=== PATIENT | female | born 1995 | race Asian ===

== ENCOUNTER 2016-11-21 15:09 | Inpatient (IN) | payer SELFPAY ==
[~2016-11-21] VITALS: Ht 160 cm; Wt 64.7 kg
[2016-11-21] MEDS ORDERED: HALOPERIDOL LACTATE 5 MG/ML VIAL IM ONE (17:00)
[2016-11-21] MEDS ORDERED: LORazepam 2 MG/ML VIAL IM ONE (17:00)
[2016-11-21] MEDS ORDERED: DiphenhydrAMINE HCL 50 MG/ML VIAL IM ONE (17:00)
[2016-11-21 17:34] LABS: BASOPHILS % (AUTO) 1.7 % (0.0-2.0); EOSINOPHILS % (AUTO) 1.3 % (1.0-6.0); HEMATOCRIT 39.7 % (36-46); LYMPHOCYTES % (AUTO) 16.6 % (22.0-44.0); MEAN CORPUSCULAR HEMOGLOBIN 28.2 pg (26.0-34.0); MEAN CORPUSCULAR HGB CONC 32.8 G/dL (31.0-37.0); MEAN CORPUSCULAR VOLUME 86 fL (80-100); MONOCYTES # (AUTO) 0.6 K/uL (0.1-1.0); MONOCYTES % (AUTO) 4.9 % (2.0-9.0); NEUTROPHILS # (AUTO) 9.1 K/uL (1.8-7.7); NEUTROPHILS % (AUTO) 75.5 % (40.0-70.0); PLATELET COUNT (AUTO) 318 K/uL (150-450); RED BLOOD CELL COUNT(AUTO) 4.61 MIL/uL (4.00-5.20); RED CELL DISTRIBUTION WIDTH 14.7 % (11.5-14.5)
[2016-11-21 17:47] LABS: ANION GAP 8 mmol/L (8-16); CALCIUM, TOTAL 9.3 mg/dL (8.8-10.5); CARBON DIOXIDE 26 mmol/L (22-29); CHLORIDE 102 mmol/L (98-107); CREATININE 0.83 mg/dL (0.60-1.30); GLOMERULAR FILTR. RATE CALC > 60 mL/min (>60); POTASSIUM 3.6 mmol/L (3.5-5.1); SODIUM SERUM 136 mmol/L (136-145); UREA NITROGEN, BLOOD 7 mg/dL (7-18)
[2016-11-21 17:53] LABS: ALANINE AMINOTRANSFERASE 17 U/L (12-78); ALBUMIN 4.2 g/dL (3.4-5.0); ASPARTATE AMINOTRANSFERASE 18 U/L (15-37); BILIRUBIN,TOTAL 0.4 mg/dL (0.1-1.0); TOTAL PROTEIN, SERUM 8.3 g/dL (6.4-8.2)
[2016-11-21] MEDS ORDERED: ZOLPIDEM TARTRATE 10 MG TABLET PO PRN (20:30)
[2016-11-21] MEDS ORDERED: HALOPERIDOL 5 MG TABLET PO PRN (20:30)
[2016-11-21] MEDS ORDERED: IBUPROFEN 400 MG TABLET PO PRN (22:15)
[2016-11-21] MEDS ORDERED: ACETAMINOPHEN 325 MG TABLET PO PRN (22:15)
[2016-11-21 23:40] VITALS: BP 113/69
[2016-11-22] MEDS: RisperiDONE 3 MG TABLET PO SCH ×3 (00:01→16:25)
[2016-11-22] MEDS: LITHIUM CARBONATE 600 MG CAPSULE PO SCH ×2 (00:01→20:06)
[2016-11-22 00:10] VITALS: BP 113/69
[2016-11-22] MEDS ORDERED: INFLUENZA VIRUS VACCINE QVS 2016-17 (3YR+)/PF 60 MCG/0.5 ML SYRINGE IM ONE (01:00)
[2016-11-22 08:07] LABS: BASOPHILS % (AUTO) 1.1 % (0.0-2.0); EOSINOPHILS % (AUTO) 5.6 % (1.0-6.0); HEMATOCRIT 35.5 % (36-46); HEMOGLOBIN 11.6 g/dL (12.0-16.0); LYMPHOCYTES # (AUTO) 2.7 K/uL (1.0-4.8); LYMPHOCYTES % (AUTO) 33.1 % (22.0-44.0); MEAN CORPUSCULAR HEMOGLOBIN 28.2 pg (26.0-34.0); MEAN CORPUSCULAR HGB CONC 32.7 G/dL (31.0-37.0); MEAN CORPUSCULAR VOLUME 86 fL (80-100); MONOCYTES # (AUTO) 0.5 K/uL (0.1-1.0); MONOCYTES % (AUTO) 6.2 % (2.0-9.0); NEUTROPHILS # (AUTO) 4.4 K/uL (1.8-7.7); PLATELET COUNT (AUTO) 264 K/uL (150-450); RED BLOOD CELL COUNT(AUTO) 4.11 MIL/uL (4.00-5.20); RED CELL DISTRIBUTION WIDTH 14.2 % (11.5-14.5); WHITE BLOOD COUNT (AUTO) 8.1 K/uL (4.5-11.0)
[2016-11-22 08:48] LABS: HEMOGLOBIN A1C 4.9 % (4.5-6.2)
[2016-11-22] MEDS: LITHIUM CARBONATE 300 MG CAPSULE PO SCH (09:14)
[2016-11-22 09:28] LABS: ALANINE AMINOTRANSFERASE 17 U/L (12-78); ALBUMIN 3.3 g/dL (3.4-5.0); ANION GAP 6 mmol/L (8-16); ASPARTATE AMINOTRANSFERASE 15 U/L (15-37); BILIRUBIN,TOTAL 0.4 mg/dL (0.1-1.0); CALCIUM, TOTAL 8.4 mg/dL (8.8-10.5); CARBON DIOXIDE 26 mmol/L (22-29); CHLORIDE 105 mmol/L (98-107); CHOL/HDL RATIO 2.1 (3.9-5.7); CREATININE 0.77 mg/dL (0.60-1.30); GLOMERULAR FILTR. RATE CALC > 60 mL/min (>60); POTASSIUM 3.7 mmol/L (3.5-5.1); SODIUM SERUM 137 mmol/L (136-145); THYROID STIMULATING HORMONE 0.78 uIU/mL (0.36-3.74); TOTAL PROTEIN, SERUM 6.8 g/dL (6.4-8.2); UREA NITROGEN, BLOOD 12 mg/dL (7-18)
[2016-11-22] MEDS: NICOTINE 21 MG/24 HOUR PATCH TD SCH (14:22)
[2016-11-22 16:02] VITALS: BP 109/58
[2016-11-22] MEDS: LORazepam 2 MG TABLET PO PRN (17:50)
[2016-11-23 01:40] VITALS: BP 135/77
[2016-11-23] MEDS: LORazepam 2 MG TABLET PO PRN ×2 (01:44→08:36)
[2016-11-23 08:10] VITALS: BP 111/71
[2016-11-23] MEDS: NICOTINE 21 MG/24 HOUR PATCH TD SCH (08:32)
[2016-11-23] MEDS: LITHIUM CARBONATE 300 MG CAPSULE PO SCH (08:32)
[2016-11-23] MEDS: RisperiDONE 3 MG TABLET PO SCH ×2 (08:36→17:00)
[2016-11-23] MEDS ORDERED: ONDANSETRON HCL 4 MG TABLET PO PRN (13:30)
[2016-11-23 16:10] VITALS: BP 106/62
[2016-11-23] MEDS: LITHIUM CARBONATE 600 MG CAPSULE PO SCH (20:17)
[2016-11-24 06:59] VITALS: BP 109/69
[2016-11-24 08:06] VITALS: BP 114/77
[2016-11-24] MEDS: RisperiDONE 3 MG TABLET PO SCH (09:00)
[2016-11-24] MEDS: LORazepam 2 MG TABLET PO PRN (09:10)
[2016-11-24] MEDS: LITHIUM CARBONATE 300 MG CAPSULE PO SCH (09:10)
[2016-11-24] MEDS: NICOTINE 21 MG/24 HOUR PATCH TD SCH (09:11)
[2016-11-24 16:53] VITALS: BP 100/60
[2016-11-24] MEDS: LITHIUM CARBONATE 600 MG CAPSULE PO SCH (20:51)
[2016-11-24] MEDS: ARIPiprazole 15 MG TABLET PO SCH (21:00)
[2016-11-25 08:07] VITALS: BP 113/75
[2016-11-25 08:25] LABS: AMYLASE 56 U/L (25-115); ANION GAP 7 mmol/L (8-16); CARBON DIOXIDE 28 mmol/L (22-29); CHLORIDE 101 mmol/L (98-107); CREATININE 0.75 mg/dL (0.60-1.30); GLOMERULAR FILTR. RATE CALC > 60 mL/min (>60); POTASSIUM 4.4 mmol/L (3.5-5.1); SODIUM SERUM 136 mmol/L (136-145); UREA NITROGEN, BLOOD 9 mg/dL (7-18)
[2016-11-25] MEDS: LITHIUM CARBONATE 300 MG CAPSULE PO SCH (08:37)
[2016-11-25] MEDS: NICOTINE 21 MG/24 HOUR PATCH TD SCH (08:37)
[2016-11-25] MEDS: LORazepam 2 MG TABLET PO PRN (08:37)
[2016-11-25 16:36] VITALS: BP 131/65
[2016-11-25] MEDS: LITHIUM CARBONATE 600 MG CAPSULE PO SCH (20:23)
[2016-11-25] MEDS: ARIPiprazole 15 MG TABLET PO SCH (20:23)
[2016-11-26 07:09] VITALS: BP 120/72
[2016-11-26] MEDS: LITHIUM CARBONATE 300 MG CAPSULE PO SCH (08:06)
[2016-11-26] MEDS: NICOTINE 21 MG/24 HOUR PATCH TD SCH (08:06)
[2016-11-26 08:37] VITALS: BP 105/62
[2016-11-26 16:08] VITALS: BP 108/67
[2016-11-26] MEDS: LITHIUM CARBONATE 600 MG CAPSULE PO SCH (20:10)
[2016-11-26] MEDS: ARIPiprazole 15 MG TABLET PO SCH (20:10)
[2016-11-27 06:42] VITALS: BP 102/69
[2016-11-27] MEDS: NICOTINE 21 MG/24 HOUR PATCH TD SCH (08:39)
[2016-11-27] MEDS: LITHIUM CARBONATE 300 MG CAPSULE PO SCH (08:39)
[2016-11-27] MEDS: LORazepam 2 MG TABLET PO PRN (08:44)
[2016-11-27 09:02] VITALS: BP 100/52
[2016-11-27] MEDS ORDERED: ARIP15TA3 PO (13:15)
[2016-11-27] MEDS ORDERED: LITH300C3 PO (13:16)
[2016-11-27] MEDS ORDERED: LITH600 PO (13:16)
== END 2016-11-27 14:30 | disposition home or self-care (01) | DRG 885 ==
LOC: EMS 15:15 → B3A 20:26
PROVIDERS: ADMIT Psychiatry & Neurology Psychiatry; ATTEND Psychiatry & Neurology Psychiatry
DX: F25.9 Schizoaffective disorder, unspecified (principal); D72.829 Elevated white blood cell count, unspecified; F41.9 Anxiety disorder, unspecified; F10.10 Alcohol abuse, uncomplicated; F19.10 Other psychoactive substance abuse, uncomplicated; Z91.013 Allergy to seafood; Z71.51 Drug abuse counseling and surveillance of drug abuser
CPT/HCPCS: 83036; 84443; 90471; 96372; 99285; G0480; J1200; J1630; J2060; Q0162

== ENCOUNTER 2017-07-27 10:10 | Emergency (ER) | payer MEDICARE, OTHER ==
[~2017-07-27] VITALS: Ht 162.6 cm; Wt 81.4 kg
[~2017-07-27 10:10] MED LIST: ARIP30TA PO; ARIP400S3 IM; LITH300C3 PO
[2017-07-27 10:19] VITALS: BP 143/85
[2017-07-27] MEDS ORDERED: [UNRECOGNIZED DRUG - CODE] PO (10:23)
[2017-07-27 10:41] LABS: BASOPHILS % (AUTO) 0.4 % (0.0-2.0); EOSINOPHILS % (AUTO) 1.6 % (1.0-6.0); HEMATOCRIT 38.5 % (36-46); HEMOGLOBIN 12.8 g/dL (12.0-16.0); LYMPHOCYTES # (AUTO) 1.7 K/uL (1.0-4.8); LYMPHOCYTES % (AUTO) 16.2 % (22.0-44.0); MEAN CORPUSCULAR HGB CONC 33.4 G/dL (31.0-37.0); MEAN CORPUSCULAR VOLUME 84 fL (80-100); MONOCYTES # (AUTO) 0.5 K/uL (0.1-1.0); NEUTROPHILS # (AUTO) 7.9 K/uL (1.8-7.7); NEUTROPHILS % (AUTO) 76.8 % (40.0-70.0); PLATELET COUNT (AUTO) 304 K/uL (150-450); RED BLOOD CELL COUNT(AUTO) 4.58 MIL/uL (4.00-5.20); RED CELL DISTRIBUTION WIDTH 14.4 % (11.5-14.5); WHITE BLOOD COUNT (AUTO) 10.3 K/uL (4.5-11.0)
[2017-07-27 10:59] LABS: ANION GAP 10 mmol/L (8-16); CALCIUM, TOTAL 8.9 mg/dL (8.8-10.5); CARBON DIOXIDE 25 mmol/L (22-29); CHLORIDE 104 mmol/L (98-107); CREATININE 0.76 mg/dL (0.60-1.30); GLOMERULAR FILTR. RATE CALC > 60 mL/min (>60); POTASSIUM 3.7 mmol/L (3.5-5.1); SODIUM SERUM 139 mmol/L (136-145); UREA NITROGEN, BLOOD 5 mg/dL (7-18)
[2017-07-27 11:04] LABS: ALANINE AMINOTRANSFERASE 16 U/L (12-78); ALBUMIN 3.9 g/dL (3.4-5.0); ASPARTATE AMINOTRANSFERASE 14 U/L (15-37); BILIRUBIN,TOTAL 0.3 mg/dL (0.1-1.0); TOTAL PROTEIN, SERUM 7.8 g/dL (6.4-8.2)
== END 2017-07-27 11:05 | disposition home or self-care (01) ==
LOC: EMS 10:12
DX: F22 Delusional disorders (principal); R46.89 Other symptoms and signs involving appearance and behavior; F17.210 Nicotine dependence, cigarettes, uncomplicated; Z91.010 Allergy to peanuts
CPT/HCPCS: 36415; 80053; 84703; 85025; 99284; G0480

== ENCOUNTER 2017-07-29 15:16 | Inpatient (IN) | payer MEDICARE, MEDICAID ==
[~2017-07-29] VITALS: Ht 162.6 cm; Wt 78.0 kg
[~2017-07-29 15:16] MED LIST changes: +[UNRECOGNIZED DRUG - CODE] PO
[2017-07-29] MEDS ORDERED: CEPH500 PO (16:08)
[2017-07-29] MEDS ORDERED: ZOLPIDEM TARTRATE 10 MG TABLET PO PRN (16:15)
[2017-07-29] MEDS ORDERED: HALOPERIDOL 5 MG TABLET PO PRN (16:15)
[2017-07-29] MEDS ORDERED: INFLUENZA VIRUS VACCINE QVS 2017-18 (3YR+)/PF 60 MCG/0.5 ML SYRINGE IM ONE (16:30)
[2017-07-29 16:38] VITALS: BP 103/73
[2017-07-30 05:51] VITALS: BP 112/76
[2017-07-30 08:12] VITALS: BP 112/64
[2017-07-30 08:30] LABS: BASOPHILS # (AUTO) 0.09 K/uL (0.00-0.20); BASOPHILS % (AUTO) 1.2 % (0.0-2.0); EOSINOPHILS # (AUTO) 0.26 K/uL (0.00-0.70); EOSINOPHILS % (AUTO) 3.38 % (1.0-6.0); HEMATOCRIT 39.4 % (36-46); LYMPHOCYTES # (AUTO) 2.2 K/uL (1.0-4.8); LYMPHOCYTES % (AUTO) 29.3 % (22.0-44.0); MEAN CORPUSCULAR HEMOGLOBIN 27.8 pg (26.0-34.0); MEAN CORPUSCULAR VOLUME 85 fL (80-100); MONOCYTES # (AUTO) 0.5 K/uL (0.1-1.0); MONOCYTES % (AUTO) 7.1 % (2.0-9.0); NEUTROPHILS # (AUTO) 4.5 K/uL (1.8-7.7); PLATELET COUNT (AUTO) 283 K/uL (150-450); RED BLOOD CELL COUNT(AUTO) 4.67 MIL/uL (4.00-5.20); RED CELL DISTRIBUTION WIDTH 14.9 % (11.5-14.5); WHITE BLOOD COUNT (AUTO) 7.6 K/uL (4.5-11.0)
[2017-07-30] MEDS ORDERED: BACITRACIN 28.4 GM OINTMENT TP PRN (08:45)
[2017-07-30] MEDS ORDERED: IBUPROFEN 600 MG TABLET PO PRN (08:45)
[2017-07-30] MEDS ORDERED: LOPERAMIDE HCL 2 MG CAPSULE PO PRN (08:45)
[2017-07-30] MEDS ORDERED: MAGNESIUM HYDROXIDE SUSPENSION 30 ML UDCUP PO PRN (08:45)
[2017-07-30] MEDS ORDERED: ALBUTEROL SULFATE HFA 90 MCG/PUFF 8 GM INHALER IH PRN (08:45)
[2017-07-30] MEDS ORDERED: PETROLATUM,WHITE 71 GM JELLY TP PRN (08:45)
[2017-07-30] MEDS ORDERED: MAG HYDROX/AL HYDROX/SIMETH ES 30 ML SUSPENSION UDCUP PO PRN (08:45)
[2017-07-30] MEDS ORDERED: ACETAMINOPHEN 325 MG TABLET PO PRN (08:45)
[2017-07-30] MEDS ORDERED: ONDANSETRON HCL 4 MG TABLET PO PRN (08:45)
[2017-07-30] MEDS ORDERED: CloNIDine HCL 0.1 MG TABLET PO PRN (08:45)
[2017-07-30 08:57] LABS: HEMOGLOBIN A1C 5.3 % (4.5-6.2)
[2017-07-30 10:09] LABS: ALANINE AMINOTRANSFERASE 18 U/L (12-78); ALBUMIN 3.8 g/dL (3.4-5.0); ANION GAP 7 mmol/L (8-16); ASPARTATE AMINOTRANSFERASE 13 U/L (15-37); BILIRUBIN,TOTAL 0.5 mg/dL (0.1-1.0); CALCIUM, TOTAL 8.7 mg/dL (8.8-10.5); CARBON DIOXIDE 26 mmol/L (22-29); CHLORIDE 105 mmol/L (98-107); CHOL/HDL RATIO 2.7 (3.9-5.7); CREATININE 0.76 mg/dL (0.60-1.30); GLOMERULAR FILTR. RATE CALC > 60 mL/min (>60); POTASSIUM 4.6 mmol/L (3.5-5.1); SODIUM SERUM 138 mmol/L (136-145); THYROID STIMULATING HORMONE 1.49 uIU/mL (0.36-3.74); TOTAL PROTEIN, SERUM 7.1 g/dL (6.4-8.2); UREA NITROGEN, BLOOD 16 mg/dL (7-18)
[2017-07-30] MEDS: LORazepam 2 MG TABLET PO PRN (13:14)
[2017-07-30 13:35] VITALS: BP 120/75
[2017-07-30 16:12] VITALS: BP 113/60
[2017-07-30] MEDS: LITHIUM CARBONATE 300 MG CAPSULE PO SCH (20:25)
[2017-07-31 06:21] VITALS: BP 119/63
[2017-07-31 08:33] LABS: BASOPHILS % (AUTO) 0.9 % (0.0-2.0); EOSINOPHILS % (AUTO) 4.6 % (1.0-6.0); HEMATOCRIT 43.3 % (36-46); LYMPHOCYTES % (AUTO) 29.9 % (22.0-44.0); MEAN CORPUSCULAR HEMOGLOBIN 27.7 pg (26.0-34.0); MEAN CORPUSCULAR HGB CONC 32.2 G/dL (31.0-37.0); MEAN CORPUSCULAR VOLUME 86 fL (80-100); MONOCYTES # (AUTO) 0.4 K/uL (0.1-1.0); MONOCYTES % (AUTO) 6.2 % (2.0-9.0); NEUTROPHILS # (AUTO) 3.9 K/uL (1.8-7.7); NEUTROPHILS % (AUTO) 58.4 % (40.0-70.0); PLATELET COUNT (AUTO) 302 K/uL (150-450); RED BLOOD CELL COUNT(AUTO) 5.04 MIL/uL (4.00-5.20); RED CELL DISTRIBUTION WIDTH 14.9 % (11.5-14.5); WHITE BLOOD COUNT (AUTO) 6.7 K/uL (4.5-11.0)
[2017-07-31 08:38] LABS: LITHIUM 0.69 mmol/L (0.60-1.20)
[2017-07-31 09:14] LABS: ALANINE AMINOTRANSFERASE 18 U/L (12-78); ALBUMIN 3.9 g/dL (3.4-5.0); ANION GAP 6 mmol/L (8-16); ASPARTATE AMINOTRANSFERASE 15 U/L (15-37); BILIRUBIN,TOTAL 0.4 mg/dL (0.1-1.0); CALCIUM, TOTAL 8.8 mg/dL (8.8-10.5); CARBON DIOXIDE 29 mmol/L (22-29); CHLORIDE 101 mmol/L (98-107); CREATININE 0.67 mg/dL (0.60-1.30); GLOMERULAR FILTR. RATE CALC > 60 mL/min (>60); POTASSIUM 4.2 mmol/L (3.5-5.1); SODIUM SERUM 136 mmol/L (136-145); UREA NITROGEN, BLOOD 18 mg/dL (7-18)
[2017-07-31] MEDS: CEPHALEXIN MONOHYDRATE 500 MG CAPSULE PO SCH ×3 (09:41→16:19)
[2017-07-31] MEDS: ARIPiprazole 15 MG TABLET PO SCH (09:41)
[2017-07-31] MEDS ORDERED: ARIPiprazole ER SUSPENSION 400 MG PRE-FILLED DUAL CHAMBER SYRINGE IM SCH (10:00)
[2017-07-31 16:18] VITALS: BP 111/64
[2017-07-31] MEDS: LITHIUM CARBONATE 300 MG CAPSULE PO SCH (20:20)
[2017-08-01 09:02] VITALS: BP 100/58
[2017-08-01] MEDS: ARIPiprazole 15 MG TABLET PO SCH (09:22)
[2017-08-01] MEDS: CEPHALEXIN MONOHYDRATE 500 MG CAPSULE PO SCH ×3 (09:22→16:14)
[2017-08-01 16:11] VITALS: BP 111/65
[2017-08-01] MEDS: LITHIUM CARBONATE 300 MG CAPSULE PO SCH (20:31)
[2017-08-02 06:31] VITALS: BP 100/61
[2017-08-02 08:30] VITALS: BP 102/57
[2017-08-02] MEDS: ARIPiprazole 15 MG TABLET PO SCH (08:38)
[2017-08-02] MEDS: CHOLECALCIFEROL (VIT D3) 1,000 UNITS TABLET PO SCH (08:38)
[2017-08-02] MEDS: CEPHALEXIN MONOHYDRATE 500 MG CAPSULE PO SCH ×3 (08:38→16:07)
[2017-08-02] MEDS: LORazepam 2 MG TABLET PO PRN (14:29)
[2017-08-02 16:12] VITALS: BP 109/70
[2017-08-02] MEDS: LITHIUM CARBONATE 300 MG CAPSULE PO SCH (20:07)
[2017-08-03 06:56] VITALS: BP 111/71
[2017-08-03 08:17] VITALS: BP 117/70
[2017-08-03] MEDS: ARIPiprazole 15 MG TABLET PO SCH (10:04)
[2017-08-03] MEDS: CEPHALEXIN MONOHYDRATE 500 MG CAPSULE PO SCH ×3 (10:04→16:13)
[2017-08-03] MEDS: CHOLECALCIFEROL (VIT D3) 1,000 UNITS TABLET PO SCH (10:04)
[2017-08-03] MEDS: LORazepam 2 MG TABLET PO PRN ×2 (10:04→20:19)
[2017-08-03] MEDS ORDERED: COLLOIDAL OATMEAL/DIMETH 227 GM LOTION TP PRN (11:30)
[2017-08-03 16:29] VITALS: BP 117/60
[2017-08-03] MEDS: LITHIUM CARBONATE 300 MG CAPSULE PO SCH (20:04)
[2017-08-04 06:35] VITALS: BP 118/70
[2017-08-04 08:58] VITALS: BP 111/72
[2017-08-04] MEDS: LORazepam 2 MG TABLET PO PRN ×2 (08:59→16:44)
[2017-08-04] MEDS: NICOTINE 21 MG/24 HOUR PATCH TD SCH (09:00)
[2017-08-04] MEDS: ARIPiprazole 15 MG TABLET PO SCH (09:00)
[2017-08-04] MEDS: CHOLECALCIFEROL (VIT D3) 1,000 UNITS TABLET PO SCH (09:00)
[2017-08-04] MEDS: CEPHALEXIN MONOHYDRATE 500 MG CAPSULE PO SCH ×3 (09:00→16:40)
[2017-08-04 16:19] VITALS: BP 107/69
[2017-08-04] MEDS: LITHIUM CARBONATE 300 MG CAPSULE PO SCH (20:10)
[2017-08-05 08:34] VITALS: BP 118/63
[2017-08-05] MEDS: ARIPiprazole 15 MG TABLET PO SCH (09:54)
[2017-08-05] MEDS: CHOLECALCIFEROL (VIT D3) 1,000 UNITS TABLET PO SCH (09:54)
[2017-08-05] MEDS: NICOTINE 21 MG/24 HOUR PATCH TD SCH (09:56)
[2017-08-05] MEDS: LORazepam 2 MG TABLET PO PRN (12:04)
[2017-08-05 16:28] VITALS: BP 103/65
[2017-08-05] MEDS: LITHIUM CARBONATE 300 MG CAPSULE PO SCH (20:23)
[2017-08-06] MEDS: ARIPiprazole 15 MG TABLET PO SCH (08:30)
[2017-08-06 08:31] VITALS: BP 118/66
[2017-08-06] MEDS: NICOTINE 21 MG/24 HOUR PATCH TD SCH (08:31)
[2017-08-06] MEDS: CHOLECALCIFEROL (VIT D3) 1,000 UNITS TABLET PO SCH (08:31)
[2017-08-06] MEDS ORDERED: LITHIUM CARBONATE 300 MG CAPSULE PO SCH (09:00)
[2017-08-06] MEDS ORDERED: LITH300C3 PO (11:32)
[2017-08-06] MEDS ORDERED: ARIP15TA2 PO (11:32)
[2017-08-27] MEDS ORDERED: ARIPiprazole ER SUSPENSION 400 MG PRE-FILLED DUAL CHAMBER SYRINGE IM SCH (09:00)
== END 2017-08-06 14:50 | disposition home or self-care (01) | DRG 885 ==
LOC: B3A 16:10
PROVIDERS: ADMIT Psychiatry & Neurology Psychiatry; ATTEND Psychiatry & Neurology Psychiatry
DX: F25.0 Schizoaffective disorder, bipolar type (principal); E55.9 Vitamin D deficiency, unspecified; F15.10 Other stimulant abuse, uncomplicated; E87.6 Hypokalemia; F12.90 Cannabis use, unspecified, uncomplicated; F41.9 Anxiety disorder, unspecified; G47.00 Insomnia, unspecified; M79.673 Pain in unspecified foot; Z63.9 Problem related to primary support group, unspecified; Z28.21 Immunization not carried out because of patient refusal; Z72.89 Other problems related to lifestyle; Z71.41 Alcohol abuse counseling and surveillance of alcoholic; Z71.51 Drug abuse counseling and surveillance of drug abuser; Z91.010 Allergy to peanuts; Z91.013 Allergy to seafood; Z79.899 Other long term (current) drug therapy; L08.9 Local infection of the skin and subcutaneous tissue, unspecified
CPT/HCPCS: 82306; 83036; 84439; 84443; J0401

== ENCOUNTER 2017-08-11 13:14 | Inpatient (IN) | payer MEDICARE, MEDICAID ==
[~2017-08-11] VITALS: Ht 162.6 cm; Wt 78.0 kg
[~2017-08-11 13:14] MED LIST changes: +ARIP15TA2 PO; -ARIP30TA PO; -ARIP400S3 IM; -[UNRECOGNIZED DRUG - CODE] PO
[2017-08-11] MEDS ORDERED: ACETAMINOPHEN 500 MG TABLET PO ONE (14:15)
[2017-08-11] MEDS ORDERED: DOXYCYCLINE 100 MG CAPSULE PO ONE (14:45)
[2017-08-11 15:00] LABS: BASOPHILS % (AUTO) 0.3 % (0.0-2.0); EOSINOPHILS % (AUTO) 0.3 % (1.0-6.0); HEMATOCRIT 38.6 % (36-46); HEMOGLOBIN 12.8 g/dL (12.0-16.0); LYMPHOCYTES # (AUTO) 1.4 K/uL (1.0-4.8); LYMPHOCYTES % (AUTO) 8.1 % (22.0-44.0); MEAN CORPUSCULAR HEMOGLOBIN 27.7 pg (26.0-34.0); MEAN CORPUSCULAR HGB CONC 33.3 G/dL (31.0-37.0); MEAN CORPUSCULAR VOLUME 83 fL (80-100); MONOCYTES # (AUTO) 0.6 K/uL (0.1-1.0); MONOCYTES % (AUTO) 3.7 % (2.0-9.0); PLATELET COUNT (AUTO) 280 K/uL (150-450); RED BLOOD CELL COUNT(AUTO) 4.63 MIL/uL (4.00-5.20); RED CELL DISTRIBUTION WIDTH 14.8 % (11.5-14.5); WHITE BLOOD COUNT (AUTO) 17.1 K/uL (4.5-11.0)
[2017-08-11 15:11] LABS: NEUTROPHILS % (AUTO) 87.6 % (40.0-70.0)
[2017-08-11 15:16] LABS: ANION GAP 15 mmol/L (8-16); CALCIUM, TOTAL 8.5 mg/dL (8.8-10.5); CARBON DIOXIDE 20 mmol/L (22-29); CHLORIDE 101 mmol/L (98-107); CREATININE 0.87 mg/dL (0.60-1.30); GLOMERULAR FILTR. RATE CALC > 60 mL/min (>60); POTASSIUM 3.6 mmol/L (3.5-5.1); SODIUM SERUM 136 mmol/L (136-145); UREA NITROGEN, BLOOD 3 mg/dL (7-18)
[2017-08-11 15:22] LABS: ALANINE AMINOTRANSFERASE 52 U/L (12-78); ALBUMIN 3.5 g/dL (3.4-5.0); ASPARTATE AMINOTRANSFERASE 35 U/L (15-37); BILIRUBIN,TOTAL 0.3 mg/dL (0.1-1.0)
[2017-08-11 15:24] LABS: LITHIUM < 0.20 mmol/L (0.60-1.20)
[2017-08-11 15:53] LABS: RBC MORPHOLOGY COMMENT NORMAL RBC MORPH
[2017-08-11 15:55] LABS: THYROID STIMULATING HORMONE 1.51 uIU/mL (0.36-3.74)
[2017-08-11] MEDS ORDERED: HALOPERIDOL LACTATE 5 MG/ML VIAL IM ONE (16:15)
[2017-08-11] MEDS ORDERED: HALOPERIDOL 5 MG TABLET PO PRN (16:15)
[2017-08-11] MEDS ORDERED: LORazepam 2 MG/ML VIAL IM ONE (16:15)
[2017-08-11] MEDS ORDERED: DiphenhydrAMINE HCL 50 MG/ML VIAL IM ONE (16:15)
[2017-08-11 19:27] VITALS: BP 97/61
[2017-08-11] MEDS ORDERED: INFLUENZA VIRUS VACCINE QVS 2017-18 (3YR+)/PF 60 MCG/0.5 ML SYRINGE IM ONE (20:45)
[2017-08-11] MEDS: LITHIUM CARBONATE 300 MG CAPSULE PO SCH (20:50)
[2017-08-12 08:45] LABS: CHOL/HDL RATIO 2.4 (3.9-5.7)
[2017-08-12 08:48] VITALS: BP 110/77
[2017-08-12] MEDS: NICOTINE 21 MG/24 HOUR PATCH TD SCH (09:00)
[2017-08-12] MEDS: LITHIUM CARBONATE 300 MG CAPSULE PO SCH ×2 (09:04→20:21)
[2017-08-12] MEDS: ARIPiprazole 15 MG TABLET PO SCH (09:04)
[2017-08-12] MEDS: DOXYCYCLINE 100 MG CAPSULE PO SCH ×2 (09:05→16:18)
[2017-08-12] MEDS: LORazepam 2 MG TABLET PO PRN ×2 (14:24→19:15)
[2017-08-12 16:41] VITALS: BP 121/86
[2017-08-12] MEDS ORDERED: ACETAMINOPHEN 325 MG TABLET PO PRN (17:00)
[2017-08-13 00:05] VITALS: BP 119/65
[2017-08-13] MEDS: LORazepam 2 MG TABLET PO PRN ×2 (00:37→16:09)
[2017-08-13 08:00] VITALS: BP 98/56
[2017-08-13] MEDS: ARIPiprazole 15 MG TABLET PO SCH (09:18)
[2017-08-13] MEDS: NICOTINE 21 MG/24 HOUR PATCH TD SCH (09:18)
[2017-08-13] MEDS: LITHIUM CARBONATE 300 MG CAPSULE PO SCH ×2 (09:18→21:33)
[2017-08-13] MEDS: DOXYCYCLINE 100 MG CAPSULE PO SCH ×2 (09:18→16:09)
[2017-08-13] MEDS: IBUPROFEN 400 MG TABLET PO PRN (09:51)
[2017-08-13 16:02] VITALS: BP 106/62
[2017-08-13] MEDS: MUPIROCIN CALCIUM 2% 22 GM OINTMENT NASAL SCH (16:09)
[2017-08-13] MEDS: GuaiFENesin/D-METHORPHAN [SUGAR-FREE] 200-20MG/10 ML SYRUP UDCUP PO PRN (17:59)
[2017-08-13] MEDS ORDERED: FAMOTIDINE 20 MG TABLET PO ONE (18:45)
[2017-08-13] MEDS ORDERED: DiphenhydrAMINE HCL 25 MG CAPSULE PO ONE (18:45)
[2017-08-13 21:30] VITALS: BP 112/66
[2017-08-13] MEDS: ZOLPIDEM TARTRATE 10 MG TABLET PO PRN (21:33)
[2017-08-14 03:01] VITALS: BP 104/67
[2017-08-14] MEDS: DiphenhydrAMINE HCL 25 MG CAPSULE PO PRN ×2 (03:04→16:09)
[2017-08-14] MEDS: IBUPROFEN 400 MG TABLET PO PRN (06:41)
[2017-08-14] MEDS: LITHIUM CARBONATE 600 MG CAPSULE PO SCH (08:19)
[2017-08-14] MEDS: DOXYCYCLINE 100 MG CAPSULE PO SCH ×2 (08:19→16:09)
[2017-08-14] MEDS: ARIPiprazole 15 MG TABLET PO SCH (08:20)
[2017-08-14] MEDS: NICOTINE 21 MG/24 HOUR PATCH TD SCH (08:22)
[2017-08-14] MEDS: MUPIROCIN CALCIUM 2% 22 GM OINTMENT NASAL SCH (08:22)
[2017-08-14 08:30] VITALS: BP 122/63
[2017-08-14] MEDS: LORazepam 2 MG TABLET PO PRN ×2 (09:04→16:09)
[2017-08-14] MEDS: GuaiFENesin/D-METHORPHAN [SUGAR-FREE] 200-20MG/10 ML SYRUP UDCUP PO PRN (12:24)
[2017-08-14 16:00] VITALS: BP 103/66
[2017-08-14] MEDS ORDERED: ALBUTEROL SULFATE HFA 90 MCG/PUFF 8 GM INHALER IH PRN (16:30)
[2017-08-14] MEDS: LITHIUM CARBONATE 300 MG CAPSULE PO SCH (20:34)
[2017-08-15 08:36] VITALS: BP 118/74
[2017-08-15] MEDS: DOXYCYCLINE 100 MG CAPSULE PO SCH ×2 (08:52→17:34)
[2017-08-15] MEDS: NICOTINE 21 MG/24 HOUR PATCH TD SCH (08:52)
[2017-08-15] MEDS: MUPIROCIN CALCIUM 2% 22 GM OINTMENT NASAL SCH (08:52)
[2017-08-15] MEDS: LITHIUM CARBONATE 600 MG CAPSULE PO SCH (08:52)
[2017-08-15] MEDS: ARIPiprazole 15 MG TABLET PO SCH (08:52)
[2017-08-15] MEDS: LORazepam 2 MG TABLET PO PRN ×2 (09:07→17:34)
[2017-08-15] MEDS ORDERED: COLLOIDAL OATMEAL/DIMETH 227 GM LOTION TP PRN (10:00)
[2017-08-15] MEDS: BACITRACIN 28.4 GM OINTMENT TP SCH (10:54)
[2017-08-15 18:06] VITALS: BP 109/69
[2017-08-15] MEDS: LITHIUM CARBONATE 300 MG CAPSULE PO SCH (21:36)
[2017-08-15] MEDS: ZOLPIDEM TARTRATE 10 MG TABLET PO PRN (21:36)
[2017-08-16] MEDS: LORazepam 2 MG TABLET PO PRN (02:27)
[2017-08-16 08:16] VITALS: BP 111/63
[2017-08-16] MEDS: DOXYCYCLINE 100 MG CAPSULE PO SCH ×2 (08:43→16:54)
[2017-08-16] MEDS: LITHIUM CARBONATE 600 MG CAPSULE PO SCH (08:43)
[2017-08-16] MEDS: ARIPiprazole 15 MG TABLET PO SCH (08:43)
[2017-08-16] MEDS: MUPIROCIN CALCIUM 2% 22 GM OINTMENT NASAL SCH (08:43)
[2017-08-16] MEDS: NICOTINE 21 MG/24 HOUR PATCH TD SCH (08:43)
[2017-08-16] MEDS: BACITRACIN 28.4 GM OINTMENT TP SCH (08:43)
[2017-08-16 16:00] VITALS: BP 104/62
[2017-08-16] MEDS: ZOLPIDEM TARTRATE 10 MG TABLET PO PRN (20:10)
[2017-08-16] MEDS: LITHIUM CARBONATE 300 MG CAPSULE PO SCH (20:10)
[2017-08-17 02:13] VITALS: BP 108/64
[2017-08-17 08:09] VITALS: BP 110/66
[2017-08-17] MEDS: LITHIUM CARBONATE 600 MG CAPSULE PO SCH (08:23)
[2017-08-17] MEDS: DOXYCYCLINE 100 MG CAPSULE PO SCH ×2 (08:24→16:14)
[2017-08-17] MEDS: ARIPiprazole 15 MG TABLET PO SCH (08:24)
[2017-08-17] MEDS: MUPIROCIN CALCIUM 2% 22 GM OINTMENT NASAL SCH (08:29)
[2017-08-17] MEDS: NICOTINE 21 MG/24 HOUR PATCH TD SCH ×2 (09:00→11:02)
[2017-08-17] MEDS: BACITRACIN 28.4 GM OINTMENT TP SCH (10:03)
[2017-08-17] MEDS: DiphenhydrAMINE HCL 25 MG CAPSULE PO PRN (13:48)
[2017-08-17 15:55] VITALS: BP 111/68
[2017-08-17] MEDS: LORazepam 2 MG TABLET PO PRN (16:14)
[2017-08-17] MEDS: LITHIUM CARBONATE 300 MG CAPSULE PO SCH (19:59)
[2017-08-17] MEDS: ZOLPIDEM TARTRATE 10 MG TABLET PO PRN (20:01)
[2017-08-17 20:35] VITALS: BP 111/68
[2017-08-18 06:51] VITALS: BP 108/72
[2017-08-18 08:06] VITALS: BP 107/62
[2017-08-18] MEDS: DOXYCYCLINE 100 MG CAPSULE PO SCH ×2 (09:22→16:16)
[2017-08-18] MEDS: LITHIUM CARBONATE 600 MG CAPSULE PO SCH (09:22)
[2017-08-18] MEDS: ARIPiprazole 15 MG TABLET PO SCH (09:23)
[2017-08-18] MEDS: MUPIROCIN CALCIUM 2% 22 GM OINTMENT NASAL SCH (09:23)
[2017-08-18] MEDS: BACITRACIN 28.4 GM OINTMENT TP SCH (09:23)
[2017-08-18] MEDS: NICOTINE 21 MG/24 HOUR PATCH TD SCH (09:24)
[2017-08-18 16:04] VITALS: BP 118/64
[2017-08-18] MEDS: LORazepam 2 MG TABLET PO PRN (16:16)
[2017-08-18] MEDS: LITHIUM CARBONATE 300 MG CAPSULE PO SCH (20:10)
[2017-08-18] MEDS: ZOLPIDEM TARTRATE 10 MG TABLET PO PRN (20:10)
[2017-08-19 08:18] VITALS: BP 100/53
[2017-08-19] MEDS: NICOTINE 21 MG/24 HOUR PATCH TD SCH (09:08)
[2017-08-19] MEDS: ARIPiprazole 15 MG TABLET PO SCH (09:09)
[2017-08-19] MEDS: BACITRACIN 28.4 GM OINTMENT TP SCH (09:10)
[2017-08-19] MEDS: DOXYCYCLINE 100 MG CAPSULE PO SCH ×2 (09:10→16:08)
[2017-08-19] MEDS: LITHIUM CARBONATE 600 MG CAPSULE PO SCH (09:14)
[2017-08-19] MEDS: LORazepam 2 MG TABLET PO PRN (16:08)
[2017-08-19 16:30] VITALS: BP 118/73
[2017-08-19] MEDS: LITHIUM CARBONATE 300 MG CAPSULE PO SCH (20:30)
[2017-08-19] MEDS: ZOLPIDEM TARTRATE 10 MG TABLET PO PRN (20:30)
[2017-08-20 01:22] VITALS: BP 106/67
[2017-08-20] MEDS: BACITRACIN 28.4 GM OINTMENT TP SCH (08:19)
[2017-08-20] MEDS: DOXYCYCLINE 100 MG CAPSULE PO SCH ×2 (08:20→16:11)
[2017-08-20] MEDS: ARIPiprazole 15 MG TABLET PO SCH (08:20)
[2017-08-20] MEDS: LITHIUM CARBONATE 600 MG CAPSULE PO SCH (08:22)
[2017-08-20 08:34] VITALS: BP 112/66
[2017-08-20 16:07] VITALS: BP 104/61
[2017-08-20] MEDS: LORazepam 2 MG TABLET PO PRN (16:11)
[2017-08-20] MEDS: LITHIUM CARBONATE 300 MG CAPSULE PO SCH (20:03)
[2017-08-20] MEDS: ZOLPIDEM TARTRATE 10 MG TABLET PO PRN (21:06)
[2017-08-20] MEDS ORDERED: DOXY50SY PO (21:38)
[2017-08-21 00:14] VITALS: BP 112/82
== END 2017-08-21 07:30 | disposition home or self-care (01) | DRG 885 ==
LOC: EMS 13:18 → B3A 18:03
PROVIDERS: ADMIT Psychiatry & Neurology Psychiatry; ATTEND Psychiatry & Neurology Psychiatry
DX: F25.0 Schizoaffective disorder, bipolar type (principal); F22 Delusional disorders; L03.111 Cellulitis of right axilla; F17.200 Nicotine dependence, unspecified, uncomplicated; F19.10 Other psychoactive substance abuse, uncomplicated; F41.9 Anxiety disorder, unspecified; Z91.010 Allergy to peanuts; Z79.899 Other long term (current) drug therapy; Z71.6 Tobacco abuse counseling; Z71.51 Drug abuse counseling and surveillance of drug abuser; Z28.21 Immunization not carried out because of patient refusal
CPT/HCPCS: 81025; 84443; 87081; 93005; 96372; 99285; G0480; J1200; J1630; J2060

== ENCOUNTER 2017-08-13 19:45 | Emergency (ER) | payer MEDICARE, OTHER ==
[~2017-08-13] VITALS: Ht 160 cm; Wt 71.0 kg
[2017-08-13] MEDS ORDERED: HALOPERIDOL LACTATE 5 MG/ML VIAL IM ONE (20:45)
[2017-08-13 20:55] VITALS: BP 112/65
== END 2017-08-13 20:57 | disposition home or self-care (01) ==
LOC: EMS 20:18
DX: T78.40XA Allergy, unspecified, initial encounter (principal); F20.9 Schizophrenia, unspecified; M79.1 Myalgia; F17.210 Nicotine dependence, cigarettes, uncomplicated; Z91.010 Allergy to peanuts
CPT/HCPCS: 96372; 99284; J1630